=== PATIENT | male | born 2000 | race Caucasian/White ===

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

== ENCOUNTER 2021-08-31 18:47 | Emergency (ER) | payer OTHER ==
[~2021-08-31] VITALS: Ht 170.2 cm; Wt 81.8 kg
[~2021-08-31 18:47] MED LIST: BUPR150T12 PO; SERT50TA29 PO
[2021-08-31 18:58] VITALS: BP 123/68
[2021-08-31] MEDS ORDERED: BACITRACIN OINTMENT 30GM TUBE TOP ONE (21:30)
[2021-08-31] MEDS ORDERED: KETOROLAC 30 MG/ML 1ML VIAL IM ONE (21:30)
[2021-08-31] MEDS ORDERED: methocarbamoL 500 MG TAB PO ONE (21:30)
[2021-08-31] MEDS ORDERED: METH-1164 PO (21:47)
== END 2021-08-31 22:05 | disposition home or self-care (01) ==
LOC: M ED 18:47
DX: S62.012A Displaced fracture of distal pole of navicular [scaphoid] bone of left wrist, initial encounter for closed fracture (principal); S49.92XA Unspecified injury of left shoulder and upper arm, initial encounter; S70.12XA Contusion of left thigh, initial encounter; V00.131A Fall from skateboard, initial encounter; Y92.410 Unspecified street and highway as the place of occurrence of the external cause; Y93.51 Activity, roller skating (inline) and skateboarding; Y99.9 Unspecified external cause status
CPT/HCPCS: 70450; 73030; 73110; 96372; 99284; J1885